=== PATIENT | male | born 1990 | race Caucasian/White ===

== ENCOUNTER 2018-07-11 13:59 | Day surgery (SDC) | payer OTHER ==
[2018-07-10 11:28] VITALS: Ht 172.7 cm; Wt 97.7 kg
[~2018-07-11] VITALS: Ht 172.7 cm; Wt 97.7 kg
[2018-07-11] VITALS (20 sets, daily range): BP systolic 112–170; BP diastolic 66–101; PULSE 44–83; RESP 12–20
[~2018-07-11 13:59] MED LIST: DESFLURANE 15 MIN ONE; LIDOCAINE 2% (SDV) 5 ML INJ ONE; SUCCINYLCHOLINE CHLORIDE 100 MG/5 ML SYG IV ONE
--- NOTE | 2018-07-11 15:28 | HPN ---
Date/Time of Note Date/Time of Note DATE: 07/11/18 TIME: 15:28 Interval H&P Admission Note Pt. seen H&P reviewed: No system changes JODI BANKS MD Jul 11, 2018 15:28
--- NOTE | 2018-07-11 15:29 | PREAC ---
Date/Time of Note Date/Time of Note DATE: 07/11/18 TIME: 15:29 Anesthesia Eval and Record Evaluation Time Pre-Procedure Interview DATE: 07/11/18 TIME: 15:29 Age 27 Sex male NPO: 8 hrs Preoperative diagnosis deviated septum Planned procedure b/l turbinoplasty Past Medical History Past Medical History: Includes Pulm: Other (kathy) Surgery & Anesthesia Issues No known issue Meds Anticoagulation: No Beta Gilberto within 24 hr: No Reason Beta Gilberto not given: Pt. not on B-Iglberto No Active Prescriptions or Reported Meds Meds reviewed: Yes Allergies Coded Allergies: No Known Allergy (Unverified , 07/11/18) Allergies Reviewed: Yes Labs/Studies Labs Reviewed: Reviewed by anesthesiologist test: N/A Pre-procedure Exam Last vitals Vital Signs Date Temp Pulse Resp B/P (MAP) Pulse Ox O2 O2 Flow FiO2 Time Delivery Rate 07/11/18 98.4 57 16 112/66 97 Room Air 14:35 (81) Airway: Adequate mouth opening, Adequate thyromental dist Mallampati: Mallampati II Teeth: Normal Lung: Normal Heart: Normal ASA Physical Status ASA physical status: 2 Emergency: None Planned Anesthetic General/MAC: ETT Pre-operative Attestations Prior to commencing anesthesia and surgery, the patient was re-evaluated, there was verification of: *The patient's identity *The results of appropriate recent lab work and preoperative vital signs *The above evaluation not changing prior to induction *Anesthetic plan, risk benefits, alternative and complications discussed with patient/family; questions answered; patient/family understands, accepts and w ishes to proceed. KEE GERBER Jul 11, 2018 15:29
--- NOTE | 2018-07-11 15:29 | HPN ---
Date/Time of Note Date/Time of Note DATE: 07/11/18 TIME: 15:29 Interval H&P Admission Note Pt. seen H&P reviewed: No system changes JODI BANKS MD Jul 11, 2018 15:29
[2018-07-11] MEDS ORDERED: MEPERIDINE 25 MG INJ IV PRN (15:30)
[2018-07-11] MEDS ORDERED: ONDANSETRON 4 MG INJ IV PRN (15:30)
[2018-07-11] MEDS ORDERED: OXYCODONE/ACETAMINOPHEN (5/325) TAB PO PRN ×2 (15:30→17:30)
[2018-07-11] MEDS ORDERED: ALBUTEROL 0.083% (NEB) 2.5 MG/3 ML AMP HHN PRN (15:30)
[2018-07-11] MEDS ORDERED: HYDROmorphONE 1 MG/5 ML IV SYRINGE IV PRN ×2 (15:30)
[2018-07-11] MEDS ORDERED: METOCLOPRAMIDE 10 MG INJ IV PRN (15:30)
[2018-07-11] MEDS ORDERED: DIPHENHYDRAMINE 50 MG INJ IV PRN (15:30)
[2018-07-11] MEDS ORDERED: FENTAnyl 50 MCG/ML VIAL IV PRN ×3 (15:30)
[2018-07-11] MEDS ORDERED: LIDOCAINE 1%/EPI (1:100,000) (MDV) 20 ML ONE (15:41)
[2018-07-11] MEDS ORDERED: COCAINE 4% 4 ML TOP ONE (15:42)
[2018-07-11] MEDS ORDERED: BACITRACIN/POLYMYXIN 28.35 GM OINT TOP ONE (15:42)
[2018-07-11] MEDS ORDERED: FENTAnyl 50 MCG/ML VIAL ONE (16:11)
[2018-07-11] MEDS ORDERED: MIDAZOLAM 1 MG/ML 2 ML INJ ONE (16:13)
[2018-07-11] MEDS ORDERED: CEFAZOLIN 1 GM INJ ONE (16:48)
[2018-07-11] MEDS ORDERED: PROPOFOL 20 ML ONE (16:48)
[2018-07-11] MEDS ORDERED: ROCURONIUM 50 MG INJ ONE (16:48)
[2018-07-11] MEDS ORDERED: SUGAMMADEX SODIUM 200 MG/2 ML VIAL IV ONE (16:48)
[2018-07-11] MEDS: HYDROmorphONE 1 MG/5 ML IV SYRINGE IV PRN ×2 (17:19→17:25)
--- NOTE | 2018-07-11 17:19 | OPR ---
Date/Time of Note Date/Time of Note DATE: 07/11/18 TIME: 17:12 Operative Report Procedure Date: Jul 11, 2018 Preoperative Diagnosis DNS, ITH Postoperative Diagnosis Same, nasal vestibular stenosis, scarring. Both sides involved with adhesions between the IT and septum. Septum deviated to left. Operation/Procedure Performed Septoplasty. Submucous resection of turbinates. Lysis of adhesion and stenting of nasal vestibule. Surgeon see signature line Echocardiography Radiology Technologist None Anesthesia Type: general Estimated Blood Loss: 10 - 50 ml's Transfusion none Specimen None Grafts/Implants none Complications none Pt Condition Post Procedure: stable Disposition: PACU Indications Severe nasal congestion, unresponsive to medications. Procedure Description Description of procedure: The patient was identified in the holding area. We had a discussion to confirm understanding of all indications risks benefits alternatives and postoperative care associated with the operation. The patient signed informed consent was taken to the operating room. The patient was laid supine on the operating room table and general anesthesia was achieved without difficulty. The face was draped in sterile fashion and the nose was packed with 4% cocaine pledgets. The nasal septum was infiltrated with 5 cc of 1% lidocaine with epinephrine in the submucoperiosteal plane bilaterally. A left sided Oso incision was made and submucoperichondreal flaps were raised. The bony cartilaginous junction of the septum was identified and entered. A deviated segments of bone and cartilage were isolated. A double- action scissor was used to transect the bony deviated segment of the skull base after which a Stacia forcep was used to resect deviated segment of bone and cartilage. Care was taken to avoid excess cartilaginous resection. The flaps were returned to normal position and anterior rhinoscopy reveals midline septum but extensive bilateral adhesions. These were lysed and the septum freed from the IT on both sides. . At this point the right inferior turbinate was medialized with a [place] elevator. The Coblation wand on a setting of 6 was used to enter the turbinate in the inferior medial submucosal compartment. 10 seconds of Coblation were performed at the 3rd 2nd and 1st caceres after which the turbinate was crushed laterally into the lateral nasal wall with a [place] elevator. The contralateral turbinate was addressed in similar fashion to complete the bilateral submucous resection and lateral fracturing of the inferior turbinates. Septal splints merocel packs were placed on each side. The patient was awakened, extubated and taken to the PACU in stable condition. Complications: None. JODI BANKS MD Jul 11, 2018 17:19
--- NOTE | 2018-07-12 07:24 | PAC ---
Date/Time of Note Date/Time of Note DATE: 07/12/18 TIME: 07:24 Post-Anesthesia Notes Post-Anesthesia Note Last documented vital signs Vital Signs Date Temp Pulse Resp B/P (MAP) Pulse Ox O2 O2 Flow FiO2 Time Delivery Rate 07/11/18 98.7 48 15 161/93 95 Room Air 18:35 (115) 07/11/18 8.0 17:30 Activity: WNL Respiratory function: WNL Cardiovascular function: WNL Mental status: Baseline Pain reasonably controlled: Yes Hydration appropriate: Yes Nausea/Vomiting absent: Yes KEE GERBER Jul 12, 2018 07:24
== END 2018-07-11 19:01 | disposition home or self-care (01) ==
LOC: SDS 13:59
PROVIDERS: ATTEND Otolaryngology
DX: J34.2 Deviated nasal septum (principal)
CPT/HCPCS: 30140; 30520; J0690; J1170; J2250; J2405; J3010; Z7512; Z7610